=== PATIENT | male | born 1990 | race Caucasian/White ===

== ENCOUNTER 2018-02-08 15:19 | Emergency (ER) | payer OTHER ==
[2018-02-08 15:39] LABS: % BASOPHILS 0.6 % (0.0-2.0); % EOSINOPHILS 0.8 % (0.0-5.0); % LYMPHOCYTES 26.7 % (20.0-50.0); % NEUTROPHILS 64.9 % (40.0-80.0); EOSINOPHILE ABSOLUTE 0.1 Th/cmm (0.1-0.4); MEAN CELL VOLUME 85.5 fl (80-99); MEAN CORPUSCULAR HEMOGLOBIN 28.5 pg (26.0-30.0); MEAN CORPUSCULAR HGB CONC 33.4 pg (28.0-36.0); MEAN PLATELET VOLUME 8.2 fl; MONOCYTE ABSOLUTE 0.5 Th/cmm (0.3-1.0); PLATELET COUNT 286 Th/cmm (150-400); RED BLOOD COUNT 5.61 Mil/cmm (4.30-5.70); RED CELL DISTRIBUTION WIDTH 12.5 % (11.5-20.0); WHITE BLOOD COUNT 7.6 Th/cmm (4.8-10.8)
[2018-02-08 15:46] LABS: URINE BILIRUBIN NEGATIVE (NEGATIVE); URINE BLOOD NEGATIVE (NEGATIVE); URINE GLUCOSE (UA) NEGATIVE (NEGATIVE); URINE KETONE NEGATIVE (NEGATIVE); URINE LEUKOCYTE ESTERASE NEGATIVE (NEGATIVE); URINE MICROSCOPIC INDICATED? YES; URINE NITRATE NEGATIVE (NEGATIVE); URINE PROTEIN NEGATIVE (NEGATIVE); URINE SOURCE CLEAN C; URINE UROBILINOGEN 0.2 E.U./dL (0.2 - 1.0)
--- NOTE | 2018-02-08 16:07 | ED Physician Chart ---
ED Chief Complaint/HPI - Patient Information Date Seen:: 02/08/18 Time Seen:: 16:02 Chief Complaint:: left testicular pain History of Present Illness:: THIS IS A 27 YO MALE WITH THE SUDDEN ONSET OF LEFT TESTICULAR PAIN AND NO SPORTS ACTIVITY OR TRAUMA SUSTAINED. HE DENIES FEVER PAINFUL URINATION AND PENILE DISCHARGE. HE DENIES ANY PREVIOUS TESTICULAR PROBLEMS. Allergies:: Allergies Allergy/AdvReac Type Severity Reaction Status Date / Time No Known Allergies Allergy Verified 02/08/18 15:29 Vitals:: Vital Signs - 8 hr 02/08/18 15:29 Temp 98.1 F HR 85 RR 16 BP 146/84 O2 Sat % 100 Historian:: Patient Review:: Nurse's Note Reviewed ED Review of Systems - Review of Systems General/Constitutional: No fever, No chills, No weight loss, No weakness, No diaphoresis, No edema, No loss of appetite Skin: No skin lesions, No rash, No bruising Head: No headache, No light-headedness Eyes: No loss of vision, No pain, No diplopia ENT: No earache, No nasal drainage, No sore throat, No tinnitus Neck: No neck pain, No swelling, No thyromegaly, No stiffness, No mass noted Cardio Vascular: No chest pain, No palpitations, No PND, No orthopnea, No edema Pulmonary: No SOB, No cough, No sputum, No wheezing GI: No nausea, No vomiting, No diarrhea, No pain, No melena, No hematochezia, No constipation, No hematemesis G/U: No dysuria, No frequency, No hematuria, Other (TESTICULAR PAIN) Musculoskeletal: No bone or joint pain, No back pain, No muscle pain Endocrine: No polyuria, No polydipsia Psychiatric: No prior psych history, No depression, No anxiety, No suicidal ideation Hematopoietic: No bruising, No lymphadenopathy Allergic/Immuno: No urticaria, No angioedema Neurological: No syncope, No focal symptoms, No weakness, No paresthesia, No headache, No seizure, No dizziness, No confusion, No vertigo ED Past Medical History - Past Medical History Obtainable: Yes Past Medical History: No significant medical hx Family History: None Social History: No Alcohol, No Drug Use, Employed Surgical History: None Medication: Reviewed Family Medical History - Family Member Mother History Unknown: Yes Ethnicity: Living Status: Still Living Hx Family Diabetes: Yes Other Medical History: RA ED Physical Exam - Physical Examination General/Constitutional: Awake, Well-developed, well-nourished, Alert, No distress, GCS 15, Non-toxic appearing, Ambulatory Head: Atraumatic Eyes: Lids, conjuctiva normal, PERRL, EOMI Skin: Nl inspection, No rash, No skin lesions, No ecchymosis, Well hydrated, No lymphadenopathy ENMT: External ears, nose nl, Nasal exam nl, Lips, teeth, gums nl Neck: Nontender, Full ROM w/o pain, No JVD, No nuchal rigidity, No bruit, No mass, No stridor Respiratory: Nl effort/Exclusion, Clear to Auscultation, No Wheeze/Rhonchi/Rales Cardio Vascular: RRR, No murmur, gallop, rubs, NL S1 S2 GI: No tenderness/rebounding/guarding, No organomegaly, No hernia, Normal BS's, Nondistended, No mass/bruits, No McBurney tenderness : No CVA tenderness Other comments:: NO TENDERNESS OF THE TESTICLES AND NO REDNESS OR SWELLING NOTED. Extremities: No tenderness or effusion, Full ROM, normal strength in all extremities, No edema, Normal digits & nails Neuro/Psych: Alert/oriented, DTR's symmetric, Normal sensory exam, Normal motor strength, Judgement/insight normal, Mood normal, Normal gait, No focal deficits Misc: Normal back, No paraspinal tenderness ED Labs/Radiology/EKG Results - Lab Results Results: Laboratory Tests 02/08/18 15:32 WBC 7.6 RBC 5.61 Hgb 16.0 Hct 48.0 MCV 85.5 MCH 28.5 MCHC Differential 33.4 RDW 12.5 Plt Count 286 MPV 8.2 Neutrophils % 64.9 Lymphocytes % 26.7 Monocytes % 7.0 Eosinophils % 0.8 Basophils % 0.6 - Radiology Results Results: SCROTAL ULTRASOUND = NAD ED Assessment - Assessment General Assessment: LEFT TESTICULAR PAIN ED Septic Shock - . Is Septic Shock (SBP<90, OR Lactate>4 mmol\L) present?: No - <6hrs of presentation: Vital Signs: Vital Signs - 8 hr 02/08/18 15:29 Temp 98.1 F HR 85 RR 16 BP 146/84 O2 Sat % 100 ED Reassessment (Disposition) - Reassessment Reassessment Condition:: Unchanged - Diagnosis Diagnosis:: LEFT TESTICULAR PAIN - Aftercare/Follow up Instructions Aftercare/Follow-Up Instructions:: Counseled pt regarding lab results/diagnosis & need follow up, Refer to Discharge Instructions, Counseled pt & family regarding lab results/diagnosis & need follow up - Patient Disposition Discharge/Transfer:: Home Condition at Disposition:: Unchanged ED Discharge Plan - Patient Disposition Admit/Discharge/Transfer: PT DISCHARGED HOME Condition at Disposition: Improved
[2018-02-08 16:43] LABS: URINE CLARITY CLEAR (CLEAR); URINE COLOR YELLOW
[2018-02-08 16:44] LABS: URINE BACTERIA NONE SEEN /hpf (NONE SEEN); URINE EPITHELIAL CELLS NONE SEEN /lpf (FEW); URINE RBC NONE SEEN /hpf (0-5); URINE WBC NONE SEEN /hpf (0-5)
--- NOTE | 2018-02-09 09:18 | Diagnostic Imaging Report ---
Testicular/scrotal ultrasound HISTORY: Pain The right testis measures 4.2 x 2.4 x 3.0 cm. No focal parenchymal lesions. Normal testicular vascular flow. The right epididymis appears normal. No hydrocele or varicocele on the right side seen. The left testis measures 4.4 x 2.5 x 3.7 cm. No focal intratesticular lesions. Normal testicular vascular flow. Left epididymis appears normal. No hydrocele or varicocele. IMPRESSION: No acute abnormalities
== END 2018-02-08 16:24 | disposition home or self-care (01) ==
LOC: ER 15:19
DX: N50.812 Left testicular pain (principal)
CPT/HCPCS: 36415-UA; 76870-TC; 81001-TC; 85025-TC